=== PATIENT | male | born 1980 | race Caucasian/White ===

== ENCOUNTER 2018-07-04 14:35 | Inpatient (IN) | payer MEDICAID, OTHER ==
[~2018-07-04] VITALS: Ht 185.4 cm; Wt 102.3 kg
[2018-07-04 15:04] LABS: Basophils # (auto) 0.1 uL; Eosinophils # (auto) 0.2 uL; Eosinophils % (auto) 3.4 % (0.0-7.0); Hemoglobin 16.6 g/dL (13.5-17.5); Lymphocytes # (auto) 1.9 uL; Lymphocytes % (auto) 27.4 % (10.0-50.0); Mean Corpuscular Hgb Conc. 34.6 g/dL (32.0-36.0); Mean Corpuscular Volume 89.5 fL (80.0-100.0); Monocytes # (auto) 0.7 uL; Monocytes % (auto) 10.5 % (0.0-12.0); Neutrophils # (auto) 3.9 uL; Neutrophils % (auto) 57.7 % (37.0-80.0); Nucleated Red Blood Cells % 0.2 %; Platelet Count (auto) 317 10^3/uL (140-450); Red Blood Cells 5.36 10^6/uL (4.5-5.90); Red Cell Distribution Width 14.1 % (11.8-14.3); White Blood Cell 6.8 10^3/uL (4.4-10.8)
[2018-07-04 15:45] LABS: Alkaline Phosphatase 63 U/L (45-117); Anion Gap 12 (5-15); BUN/Creatinine Ratio 14.3; Blood Urea Nitrogen 11 mg/dL (7-18); Carbon Dioxide 22 mmol/L (21-32); Chloride 106 mmol/L (98-107); GFR African American 145 mL/min; GFR Non-African American 120 mL/min; Glucose 98 mg/dL (74-106); Potassium 4.4 mmol/L (3.5-5.1); Sodium 140 mmol/L (136-145)
[2018-07-04 15:46] LABS: Alanine Aminotransferase 60 U/L (16-61); Albumin 4.1 g/dL (3.4-5.0); Aspartate Aminotransferase 26 U/L (15-37); Calcium 9.2 mg/dL (8.5-10.1); Magnesium 2.3 mg/dL (1.6-2.6); Total Protein 7.6 g/dL (6.4-8.2)
[2018-07-04 19:49] LABS: Urine WBC None Seen /hpf (0 - 3)
[2018-07-04 20:58] LABS: Urine Amorphous Crystal MOD /hpf (None Seen); Urine Bacteria NONE SEEN /hpf (None Seen); Urine Blood Negative /uL (Negative); Urine Specific Gravity 1.015 (1.001-1.035)
[2018-07-04 21:05] LABS: Alcohol, Urine < 3.0 mg/dL (0-5); Amphetamine Screen, Urine NEGATIVE (NEGATIVE); Barbiturate Scree,Urine NEGATIVE (NEGATIVE); Benzodiazephine Screen, Urine NEGATIVE (NEGATIVE); Cannabinoid Screen, Urine NEGATIVE (NEGATIVE); Cocaine Screen, Urine NEGATIVE (NEGATIVE); Opiate Scree,Urine NEGATIVE (NEGATIVE); Phencyclidine Screen, Urine NEGATIVE (NEGATIVE)
[2018-07-04] MEDS ORDERED: ONDANSETRON HCL 4 MG/2 ML VIAL IV PRN (22:00)
[2018-07-04] MEDS ORDERED: TEMAZEPAM 15 MG CAP PO PRN (22:00)
[2018-07-04] MEDS ORDERED: MORPHINE SULF INJ 2 MG/ML SYRINGE 1ML IV PRN (22:00)
[2018-07-04] MEDS ORDERED: HYDROcodone-ACET 5/325MG TAB PO PRN (22:00)
[2018-07-04] MEDS: LORazepam 2MG/ML-1ML VIAL ONE ×4 (23:11→23:45)
[2018-07-04] MEDS ORDERED: LEVETIRACETAM 500 MG/5ML INJ IV ONE (23:16)
[2018-07-04] MEDS ORDERED: LEVETIRACETAM INJ 1,000 MG in D5W 5% 100 ML IV ONE (23:30)
[2018-07-04] MEDS ORDERED: LORazepam 2MG/ML-1ML VIAL IV PRN (23:30)
[2018-07-04] MEDS ORDERED: SUCCINYLCHOLINE CHLORIDE 20 MG/ML 10ML VIAL IV ONE (23:53)
[2018-07-04] MEDS ORDERED: ETOMIDATE (2MG/ML) 20ML VIAL IV ONE (23:53)
[2018-07-05] VITALS (104 sets, daily range): BP systolic 82–121; BP diastolic 47–85
[2018-07-05] MEDS ORDERED: METOPROLOL TARTRATE 1MG/1ML-5ML VIAL IV ONE
[2018-07-05] MEDS ORDERED: SODIUM CHLORIDE 0.9% 500 ML IV ONE
[2018-07-05] MEDS: PROPOFOL 100 ML IV SCH ×3 (00:04→19:48)
[2018-07-05] MEDS: MIDAZOLAM DRIP 50 mg/50mL 50 ML IV SCH ×6 (00:35→23:50)
[2018-07-05] MEDS ORDERED: MIDAZOLAM DRIP 50 mg/50mL 50 ML IV ONE (00:36)
[2018-07-05] MEDS: FAMOTIDINE 20 MG TAB PO SCH (10:00)
[2018-07-05] MEDS: PANTOPRAZOLE 40 MG/10 ML VIAL IV SCH (10:14)
[2018-07-05] MEDS: ENOXAPARIN SOD 40 MG/0.4 ML SYRINGE SC SCH (10:14)
[2018-07-05] MEDS: LEVETIRACETAM INJ 500 MG in D5W 5% 100 ML IV SCH ×2 (10:20→22:21)
[2018-07-05 11:19] LABS: Basophils # (auto) 0 uL; Basophils % (auto) 0.2 % (0.0-2.0); Eosinophils # (auto) 0 uL; Eosinophils % (auto) 0.3 % (0.0-7.0); Hematocrit 43.9 % (41.0-53.0); Hemoglobin 14.7 g/dL (13.5-17.5); Lymphocytes # (auto) 0.8 uL; Mean Corpuscular Hgb Conc. 33.5 g/dL (32.0-36.0); Mean Corpuscular Volume 89.5 fL (80.0-100.0); Monocytes % (auto) 7.8 % (0.0-12.0); Neutrophils # (auto) 11.1 uL; Neutrophils % (auto) 85.7 % (37.0-80.0); Nucleated Red Blood Cells % 0.1 %; Platelet Count (auto) 276 10^3/uL (140-450); Red Cell Distribution Width 14.5 % (11.8-14.3)
[2018-07-05 11:41] LABS: Calcium 8.3 mg/dL (8.5-10.1); Potassium 4.4 mmol/L (3.5-5.1)
[2018-07-06] VITALS (106 sets, daily range): BP systolic 94–127; BP diastolic 31–86
[2018-07-06] MEDS: MIDAZOLAM DRIP 50 mg/50mL 50 ML IV SCH ×5 (03:48→20:15)
[2018-07-06] MEDS: PROPOFOL 100 ML IV SCH ×2 (07:38→18:09)
[2018-07-06] MEDS: FAMOTIDINE 20 MG TAB PO SCH (10:00)
[2018-07-06] MEDS: PANTOPRAZOLE 40 MG/10 ML VIAL IV SCH (10:01)
[2018-07-06] MEDS: LEVETIRACETAM INJ 500 MG in D5W 5% 100 ML IV SCH ×2 (10:02→22:10)
[2018-07-06] MEDS: ENOXAPARIN SOD 40 MG/0.4 ML SYRINGE SC SCH (10:02)
[2018-07-06 11:11] LABS: Albumin 3.2 g/dL (3.4-5.0); BUN/Creatinine Ratio 15.1; Bilirubin, Total 2.6 mg/dL (0.2-1.0); Calcium 8.4 mg/dL (8.5-10.1); Potassium 4.3 mmol/L (3.5-5.1); Total Protein 6.9 g/dL (6.4-8.2)
[2018-07-06] MEDS ORDERED: ACETAMINOPHEN 650 MG RECT SUPP PR ONE (11:15)
[2018-07-06] MEDS: ACETAMINOPHEN 500 MG TAB PO PRN (22:27)
[2018-07-07] VITALS (92 sets, daily range): BP systolic 90–158; BP diastolic 38–104
[2018-07-07 03:58] LABS: Basophils # (auto) 0.1 uL; Basophils % (auto) 0.5 % (0.0-2.0); Eosinophils # (auto) 0.1 uL; Eosinophils % (auto) 0.4 % (0.0-7.0); Hematocrit 41.1 % (41.0-53.0); Hemoglobin 13.7 g/dL (13.5-17.5); Lymphocytes # (auto) 1.7 uL; Lymphocytes % (auto) 11.6 % (10.0-50.0); Mean Corpuscular Hemoglobin 30.1 pg (28.0-32.0); Mean Corpuscular Hgb Conc. 33.4 g/dL (32.0-36.0); Monocytes # (auto) 1.3 uL; Monocytes % (auto) 9.2 % (0.0-12.0); Neutrophils # (auto) 11.4 uL; Neutrophils % (auto) 78.3 % (37.0-80.0); Platelet Count (auto) 266 10^3/uL (140-450); Red Blood Cells 4.57 10^6/uL (4.5-5.90); Red Cell Distribution Width 14.4 % (11.8-14.3); White Blood Cell 14.6 10^3/uL (4.4-10.8)
[2018-07-07 04:14] LABS: BUN/Creatinine Ratio 20.5; Calcium 8.7 mg/dL (8.5-10.1); Potassium 4.3 mmol/L (3.5-5.1)
[2018-07-07] MEDS: PIPERACILLIN-TAZOB 3.375GM 100 ML IV SCH ×3 (05:49→18:00)
[2018-07-07] MEDS: MIDAZOLAM DRIP 50 mg/50mL 50 ML IV SCH ×5 (05:49→21:31)
[2018-07-07] MEDS: PROPOFOL 100 ML IV SCH ×2 (07:16→16:20)
[2018-07-07] MEDS: ACETAMINOPHEN 500 MG TAB PO PRN ×2 (08:47→22:42)
[2018-07-07] MEDS: LEVETIRACETAM INJ 500 MG in D5W 5% 100 ML IV SCH ×2 (09:31→21:32)
[2018-07-07] MEDS: PANTOPRAZOLE 40 MG/10 ML VIAL IV SCH (09:32)
[2018-07-07] MEDS: FAMOTIDINE 20 MG TAB PO SCH (09:32)
[2018-07-07] MEDS: ENOXAPARIN SOD 40 MG/0.4 ML SYRINGE SC SCH (09:33)
[2018-07-07] MEDS ORDERED: ACETAMINOPHEN IV 100 ML IV ONE (13:03)
[2018-07-07] MEDS ORDERED: ACETAMINOPHEN IV 1000 MG/100ML (10MG/ML) IV ONE (14:15)
[2018-07-08] VITALS (108 sets, daily range): BP systolic 84–144; BP diastolic 33–78
[2018-07-08] MEDS: PIPERACILLIN-TAZOB 3.375GM 100 ML IV SCH ×2 (00:08→05:03)
[2018-07-08] MEDS: PROPOFOL 100 ML IV SCH ×3 (00:45→18:31)
[2018-07-08] MEDS: MIDAZOLAM DRIP 50 mg/50mL 50 ML IV SCH ×6 (01:47→19:45)
[2018-07-08 03:56] LABS: Basophils # (auto) 0.1 uL; Basophils % (auto) 0.5 % (0.0-2.0); Eosinophils # (auto) 0.1 uL; Eosinophils % (auto) 1.2 % (0.0-7.0); Hematocrit 41.8 % (41.0-53.0); Hemoglobin 14.2 g/dL (13.5-17.5); Lymphocytes % (auto) 9.8 % (10.0-50.0); Mean Corpuscular Hemoglobin 30.4 pg (28.0-32.0); Mean Corpuscular Hgb Conc. 33.9 g/dL (32.0-36.0); Mean Corpuscular Volume 89.8 fL (80.0-100.0); Monocytes # (auto) 1.1 uL; Monocytes % (auto) 10.3 % (0.0-12.0); Neutrophils # (auto) 8.1 uL; Neutrophils % (auto) 78.2 % (37.0-80.0); Nucleated Red Blood Cells % 0.1 %; Platelet Count (auto) 261 10^3/uL (140-450); Red Blood Cells 4.66 10^6/uL (4.5-5.90); Red Cell Distribution Width 14.3 % (11.8-14.3); White Blood Cell 10.4 10^3/uL (4.4-10.8)
[2018-07-08 04:12] LABS: Potassium 3.8 mmol/L (3.5-5.1)
[2018-07-08 04:17] LABS: BUN/Creatinine Ratio 25.6; Calcium 8.6 mg/dL (8.5-10.1)
[2018-07-08] MEDS: FAMOTIDINE 20 MG TAB PO SCH (10:00)
[2018-07-08] MEDS: PANTOPRAZOLE 40 MG/10 ML VIAL IV SCH (10:04)
[2018-07-08] MEDS: LEVETIRACETAM INJ 500 MG in D5W 5% 100 ML IV SCH ×2 (10:04→22:48)
[2018-07-08] MEDS: ENOXAPARIN SOD 40 MG/0.4 ML SYRINGE SC SCH (10:04)
[2018-07-08] MEDS ORDERED: ACETAMINOPHEN IV 1000 MG/100ML (10MG/ML) IV PRN (12:30)
[2018-07-08 12:54] LABS: INR 1.08 (0.9-1.15); Prothrombin Time 11.5 sec (9.27-12.13)
[2018-07-08] MEDS: ACETAMINOPHEN IV 1000 MG/100ML (10MG/ML) IV PRN ×2 (13:16→21:40)
[2018-07-08] MEDS: CLINDAMYCIN 600MG IV 50 ML IV SCH ×2 (13:42→21:19)
[2018-07-08] MEDS ORDERED: LIDOCAINE 1% (LOCAL ANESTH.) PF 5ml SDV ID ONE (15:45)
[2018-07-08] MEDS: Jevity 1.2 Cal/Fiber 1 Liter GT SCH (18:30)
[2018-07-08] MEDS: SODIUM CHLOR 0.9% PF (SALINE LOCK) 10ML VIAL/SYR IV SCH (22:00)
[2018-07-09] VITALS (101 sets, daily range): BP systolic 80–153; BP diastolic 36–88
[2018-07-09] MEDS: MIDAZOLAM DRIP 50 mg/50mL 50 ML IV SCH ×4 (00:43→21:21)
[2018-07-09] MEDS: PROPOFOL 100 ML IV SCH ×2 (03:27→15:26)
[2018-07-09 03:52] LABS: Basophils # (auto) 0.1 uL; Basophils % (auto) 0.8 % (0.0-2.0); Eosinophils # (auto) 0.2 uL; Eosinophils % (auto) 1.7 % (0.0-7.0); Hematocrit 39.5 % (41.0-53.0); Hemoglobin 13.2 g/dL (13.5-17.5); Lymphocytes # (auto) 1.1 uL; Lymphocytes % (auto) 11.2 % (10.0-50.0); Mean Corpuscular Hemoglobin 30.1 pg (28.0-32.0); Mean Corpuscular Hgb Conc. 33.4 g/dL (32.0-36.0); Mean Corpuscular Volume 90.1 fL (80.0-100.0); Monocytes # (auto) 1.1 uL; Monocytes % (auto) 10.9 % (0.0-12.0); Neutrophils # (auto) 7.4 uL; Neutrophils % (auto) 75.4 % (37.0-80.0); Platelet Count (auto) 274 10^3/uL (140-450); Red Blood Cells 4.39 10^6/uL (4.5-5.90); Red Cell Distribution Width 13.7 % (11.8-14.3); White Blood Cell 9.8 10^3/uL (4.4-10.8)
[2018-07-09 04:18] LABS: Calcium 8.5 mg/dL (8.5-10.1); Potassium 3.9 mmol/L (3.5-5.1)
[2018-07-09] MEDS: CLINDAMYCIN 600MG IV 50 ML IV SCH ×3 (05:54→21:23)
[2018-07-09] MEDS: ACETAMINOPHEN IV 1000 MG/100ML (10MG/ML) IV PRN ×3 (06:14→23:09)
[2018-07-09 07:43] LABS: BUN/Creatinine Ratio 26.5
[2018-07-09] MEDS: LEVETIRACETAM INJ 500 MG in D5W 5% 100 ML IV SCH ×2 (10:20→22:19)
[2018-07-09] MEDS: FAMOTIDINE 20 MG TAB PO SCH (10:24)
[2018-07-09] MEDS: CEFTRIAXONE SODIUM 2 GM in D5W 5% 50 ML IV SCH (10:24)
[2018-07-09] MEDS: SODIUM CHLOR 0.9% PF (SALINE LOCK) 10ML VIAL/SYR IV SCH ×2 (10:24→21:23)
[2018-07-09] MEDS: ENOXAPARIN SOD 40 MG/0.4 ML SYRINGE SC SCH (10:24)
[2018-07-09] MEDS: PANTOPRAZOLE 40 MG/10 ML VIAL IV SCH (10:24)
[2018-07-10] VITALS (103 sets, daily range): BP systolic 82–178; BP diastolic 39–95
[2018-07-10] MEDS: PROPOFOL 100 ML IV SCH ×2 (02:00→16:59)
[2018-07-10 04:39] LABS: Basophils # (auto) 0.1 uL; Basophils % (auto) 1.1 % (0.0-2.0); Eosinophils # (auto) 0.2 uL; Eosinophils % (auto) 1.9 % (0.0-7.0); Hematocrit 37.3 % (41.0-53.0); Lymphocytes % (auto) 10.6 % (10.0-50.0); Mean Corpuscular Hemoglobin 31.1 pg (28.0-32.0); Mean Corpuscular Hgb Conc. 34.8 g/dL (32.0-36.0); Mean Corpuscular Volume 89.2 fL (80.0-100.0); Monocytes # (auto) 1.1 uL; Monocytes % (auto) 11.6 % (0.0-12.0); Neutrophils # (auto) 7.1 uL; Neutrophils % (auto) 74.8 % (37.0-80.0); Platelet Count (auto) 273 10^3/uL (140-450); Red Blood Cells 4.18 10^6/uL (4.5-5.90); Red Cell Distribution Width 13.9 % (11.8-14.3); White Blood Cell 9.5 10^3/uL (4.4-10.8)
[2018-07-10] MEDS: Jevity 1.2 Cal/Fiber 1 Liter GT SCH (04:44)
[2018-07-10 05:02] LABS: BUN/Creatinine Ratio 24.6; Calcium 8.3 mg/dL (8.5-10.1); Magnesium 2.4 mg/dL (1.6-2.6); Phosphorus 2.9 mg/dL (2.5-4.90); Potassium 3.8 mmol/L (3.5-5.1)
[2018-07-10] MEDS: ACETAMINOPHEN IV 1000 MG/100ML (10MG/ML) IV PRN ×2 (05:17→17:45)
[2018-07-10] MEDS: CLINDAMYCIN 600MG IV 50 ML IV SCH (05:52)
[2018-07-10] MEDS: MIDAZOLAM DRIP 50 mg/50mL 50 ML IV SCH ×2 (05:59→15:29)
[2018-07-10] MEDS: CEFTRIAXONE SODIUM 2 GM in D5W 5% 50 ML IV SCH (08:56)
[2018-07-10] MEDS: FAMOTIDINE 20 MG TAB PO SCH (09:36)
[2018-07-10] MEDS: PANTOPRAZOLE 40 MG/10 ML VIAL IV SCH (09:36)
[2018-07-10] MEDS: ENOXAPARIN SOD 40 MG/0.4 ML SYRINGE SC SCH (09:36)
[2018-07-10] MEDS: SODIUM CHLOR 0.9% PF (SALINE LOCK) 10ML VIAL/SYR IV SCH ×2 (09:36→22:27)
[2018-07-10] MEDS: LEVETIRACETAM INJ 500 MG in D5W 5% 100 ML IV SCH (09:37)
[2018-07-10] MEDS ORDERED: PIPERACILLIN-TAZOB 3.375GM 100 ML IV ONE (14:15)
[2018-07-10] MEDS ORDERED: IOHEXOL 300 MG/ML 100ML BOTTLE IJ ONE (15:32)
[2018-07-10] MEDS ORDERED: LEVETIRACETAM INJ 500 MG in D5W 5% 100 ML IV ONE (17:00)
[2018-07-10] MEDS ORDERED: LEVETIRACETAM INJ 1,000 MG in D5W 5% 100 ML IV ONE (17:00)
[2018-07-10] MEDS ORDERED: ceFAZolin 1GM/50ML 50 ML IV SCH (18:00)
[2018-07-10] MEDS: PIPERACILLIN-TAZOB 3.375GM 100 ML IV SCH ×2 (18:02→23:33)
[2018-07-10] MEDS: LEVETIRACETAM INJ 750 MG in D5W 5% 100 ML IV SCH (21:25)
[2018-07-10] MEDS ORDERED: LEVETIRACETAM INJ 750 MG in D5W 5% 100 ML IV SCH (22:00)
[2018-07-11] VITALS (97 sets, daily range): BP systolic 93–141; BP diastolic 46–88
[2018-07-11] MEDS: ACETAMINOPHEN IV 1000 MG/100ML (10MG/ML) IV PRN (01:02)
[2018-07-11] MEDS: MIDAZOLAM DRIP 50 mg/50mL 50 ML IV SCH ×3 (01:55→17:53)
[2018-07-11 04:27] LABS: Basophils # (auto) 0 uL; Basophils % (auto) 0.5 % (0.0-2.0); Eosinophils # (auto) 0.2 uL; Eosinophils % (auto) 2.4 % (0.0-7.0); Hemoglobin 13.1 g/dL (13.5-17.5); Lymphocytes # (auto) 1.2 uL; Lymphocytes % (auto) 13.7 % (10.0-50.0); Mean Corpuscular Hemoglobin 29.7 pg (28.0-32.0); Mean Corpuscular Hgb Conc. 33.5 g/dL (32.0-36.0); Mean Corpuscular Volume 88.8 fL (80.0-100.0); Monocytes % (auto) 10.9 % (0.0-12.0); Neutrophils # (auto) 6.4 uL; Neutrophils % (auto) 72.5 % (37.0-80.0); Nucleated Red Blood Cells % 0.1 %; Platelet Count (auto) 310 10^3/uL (140-450); Red Blood Cells 4.39 10^6/uL (4.5-5.90); Red Cell Distribution Width 13.8 % (11.8-14.3); White Blood Cell 8.8 10^3/uL (4.4-10.8)
[2018-07-11 04:53] LABS: BUN/Creatinine Ratio 26.3; Calcium 8.5 mg/dL (8.5-10.1); Potassium 3.4 mmol/L (3.5-5.1)
[2018-07-11] MEDS: PROPOFOL 100 ML IV SCH ×2 (06:24→17:42)
[2018-07-11] MEDS: PIPERACILLIN-TAZOB 3.375GM 100 ML IV SCH ×3 (06:24→17:41)
[2018-07-11] MEDS: Jevity 1.2 Cal/Fiber 1 Liter GT SCH (06:25)
[2018-07-11] MEDS: ENOXAPARIN SOD 40 MG/0.4 ML SYRINGE SC SCH (09:56)
[2018-07-11] MEDS: PANTOPRAZOLE 40 MG/10 ML VIAL IV SCH (09:56)
[2018-07-11] MEDS: FAMOTIDINE 20 MG TAB PO SCH (09:56)
[2018-07-11] MEDS: SODIUM CHLOR 0.9% PF (SALINE LOCK) 10ML VIAL/SYR IV SCH ×2 (09:56→22:00)
[2018-07-11] MEDS: LEVETIRACETAM INJ 750 MG in D5W 5% 100 ML IV SCH ×2 (10:32→22:00)
[2018-07-11] MEDS ORDERED: POTASSIUM CHL 20MEQ/100ML 100 ML IV ONE (12:45)
[2018-07-12] VITALS (66 sets, daily range): BP systolic 99–166; BP diastolic 55–113
[2018-07-12] MEDS: PIPERACILLIN-TAZOB 3.375GM 100 ML IV SCH ×3 (00:23→11:37)
[2018-07-12] MEDS: MIDAZOLAM DRIP 50 mg/50mL 50 ML IV SCH ×2 (03:45→06:54)
[2018-07-12] MEDS: ACETAMINOPHEN IV 1000 MG/100ML (10MG/ML) IV PRN (03:45)
[2018-07-12] MEDS: PROPOFOL 100 ML IV SCH ×2 (03:45→06:53)
[2018-07-12 04:40] LABS: Basophils # (auto) 0 uL; Basophils % (auto) 0.4 % (0.0-2.0); Eosinophils # (auto) 0.2 uL; Eosinophils % (auto) 2.3 % (0.0-7.0); Hemoglobin 12.4 g/dL (13.5-17.5); Lymphocytes # (auto) 1.2 uL; Lymphocytes % (auto) 12.2 % (10.0-50.0); Mean Corpuscular Hemoglobin 29.7 pg (28.0-32.0); Mean Corpuscular Hgb Conc. 33.5 g/dL (32.0-36.0); Mean Corpuscular Volume 88.7 fL (80.0-100.0); Monocytes % (auto) 10.1 % (0.0-12.0); Neutrophils # (auto) 7.6 uL; Platelet Count (auto) 356 10^3/uL (140-450); Red Blood Cells 4.17 10^6/uL (4.5-5.90); Red Cell Distribution Width 13.6 % (11.8-14.3); White Blood Cell 10.2 10^3/uL (4.4-10.8)
[2018-07-12 05:02] LABS: Calcium 8.3 mg/dL (8.5-10.1); Potassium 3.3 mmol/L (3.5-5.1)
[2018-07-12] MEDS: PANTOPRAZOLE 40 MG/10 ML VIAL IV SCH (09:57)
[2018-07-12] MEDS: SODIUM CHLOR 0.9% PF (SALINE LOCK) 10ML VIAL/SYR IV SCH ×2 (09:57→21:29)
[2018-07-12] MEDS: ENOXAPARIN SOD 40 MG/0.4 ML SYRINGE SC SCH (09:57)
[2018-07-12] MEDS: FAMOTIDINE 20 MG TAB PO SCH (10:00)
[2018-07-12] MEDS: LEVETIRACETAM INJ 750 MG in D5W 5% 100 ML IV SCH (10:35)
[2018-07-12] MEDS ORDERED: POTASSIUM CHL 20MEQ/100ML 100 ML IV ONE (13:15)
[2018-07-12] MEDS ORDERED: LEVOFLOXACIN 500MG 100 ML IV ONE (14:00)
[2018-07-12] MEDS: LEVOFLOXACIN 750MG 150 ML IV SCH (16:10)
[2018-07-12] MEDS: LEVETIRACETAM 500 MG TAB PO SCH (21:29)
[2018-07-13] VITALS (20 sets, daily range): BP systolic 92–159; BP diastolic 43–101
[2018-07-13] MEDS ORDERED: LORazepam 2MG/ML-1ML VIAL ONE (02:10)
[2018-07-13] MEDS ORDERED: LORazepam 2MG/ML-1ML VIAL IV PRN (08:15)
[2018-07-13] MEDS: LEVETIRACETAM 500 MG TAB PO SCH ×2 (10:17→21:55)
[2018-07-13] MEDS: LEVOFLOXACIN 750MG 150 ML IV SCH (10:17)
[2018-07-13] MEDS: FAMOTIDINE 20 MG TAB PO SCH (10:17)
[2018-07-13] MEDS: ENOXAPARIN SOD 40 MG/0.4 ML SYRINGE SC SCH (10:17)
[2018-07-13] MEDS: SODIUM CHLOR 0.9% PF (SALINE LOCK) 10ML VIAL/SYR IV SCH ×2 (10:17→21:55)
[2018-07-13 11:06] LABS: Basophils # (auto) 0.1 uL; Basophils % (auto) 0.5 % (0.0-2.0); Eosinophils # (auto) 0.1 uL; Eosinophils % (auto) 1.1 % (0.0-7.0); Hematocrit 35.8 % (41.0-53.0); Hemoglobin 12.4 g/dL (13.5-17.5); Lymphocytes % (auto) 9.5 % (10.0-50.0); Mean Corpuscular Hemoglobin 30.6 pg (28.0-32.0); Mean Corpuscular Hgb Conc. 34.7 g/dL (32.0-36.0); Mean Corpuscular Volume 88.1 fL (80.0-100.0); Monocytes # (auto) 0.9 uL; Monocytes % (auto) 8.4 % (0.0-12.0); Neutrophils # (auto) 8.3 uL; Neutrophils % (auto) 80.5 % (37.0-80.0); Nucleated Red Blood Cells % 0.1 %; Platelet Count (auto) 308 10^3/uL (140-450); Red Blood Cells 4.06 10^6/uL (4.5-5.90); Red Cell Distribution Width 13.1 % (11.8-14.3); White Blood Cell 10.3 10^3/uL (4.4-10.8)
[2018-07-13 11:32] LABS: Calcium 8.3 mg/dL (8.5-10.1); Potassium 3.5 mmol/L (3.5-5.1)
[2018-07-13] MEDS ORDERED: TEMAZEPAM 15 MG CAP PO PRN (12:45)
[2018-07-14] VITALS (16 sets, daily range): BP systolic 118–155; BP diastolic 71–94
[2018-07-14 08:59] LABS: Basophils # (auto) 0 uL; Basophils % (auto) 0.2 % (0.0-2.0); Eosinophils # (auto) 0.1 uL; Hematocrit 38.5 % (41.0-53.0); Hemoglobin 13.5 g/dL (13.5-17.5); Lymphocytes # (auto) 0.9 uL; Lymphocytes % (auto) 6.8 % (10.0-50.0); Mean Corpuscular Hemoglobin 30.5 pg (28.0-32.0); Mean Corpuscular Hgb Conc. 35.1 g/dL (32.0-36.0); Mean Corpuscular Volume 86.8 fL (80.0-100.0); Monocytes # (auto) 0.9 uL; Monocytes % (auto) 6.9 % (0.0-12.0); Neutrophils # (auto) 11.4 uL; Neutrophils % (auto) 85.1 % (37.0-80.0); Nucleated Red Blood Cells % 0.2 %; Platelet Count (auto) 450 10^3/uL (140-450); Red Blood Cells 4.44 10^6/uL (4.5-5.90); Red Cell Distribution Width 13.2 % (11.8-14.3); White Blood Cell 13.4 10^3/uL (4.4-10.8)
[2018-07-14 09:14] LABS: BUN/Creatinine Ratio 20.8; Calcium 8.8 mg/dL (8.5-10.1); Potassium 3.5 mmol/L (3.5-5.1)
[2018-07-14] MEDS ORDERED: ONDANSETRON HCL 4 MG/2 ML VIAL ONE (09:26)
[2018-07-14] MEDS: LEVOFLOXACIN 750MG 150 ML IV SCH (09:29)
[2018-07-14] MEDS: ONDANSETRON HCL 4 MG/2 ML VIAL IV PRN ×2 (09:29→20:37)
[2018-07-14] MEDS: SODIUM CHLOR 0.9% PF (SALINE LOCK) 10ML VIAL/SYR IV SCH ×2 (09:29→21:13)
[2018-07-14] MEDS: ENOXAPARIN SOD 40 MG/0.4 ML SYRINGE SC SCH (09:30)
[2018-07-14] MEDS: LEVETIRACETAM 500 MG TAB PO SCH ×2 (09:30→21:14)
[2018-07-14] MEDS: FAMOTIDINE 20 MG TAB PO SCH (09:30)
[2018-07-14] MEDS ORDERED: PANTOPRAZOLE 40 MG TAB PO ONE (13:15)
[2018-07-14] MEDS ORDERED: ACETAMINOPHEN 500 MG TAB PO PRN (13:15)
[2018-07-14] MEDS ORDERED: LIDOCAINE 1% (LOCAL ANESTH.) PF 5ml SDV ONE (14:21)
[2018-07-15 05:00] VITALS: BP 123/73
[2018-07-15] MEDS: ONDANSETRON HCL 4 MG/2 ML VIAL IV PRN (05:40)
[2018-07-15 06:37] LABS: Basophils # (auto) 0 uL; Mean Corpuscular Hemoglobin 30.7 pg (28.0-32.0); Monocytes # (auto) 1.1 uL; Neutrophils # (auto) 10.1 uL; Red Blood Cells 4.57 10^6/uL (4.5-5.90)
[2018-07-15 06:39] LABS: Basophils % (auto) 0.3 % (0.0-2.0); Eosinophils # (auto) 0.2 uL; Eosinophils % (auto) 1.7 % (0.0-7.0); Hematocrit 39.4 % (41.0-53.0); Lymphocytes # (auto) 1.1 uL; Lymphocytes % (auto) 8.8 % (10.0-50.0); Mean Corpuscular Hgb Conc. 35.5 g/dL (32.0-36.0); Mean Corpuscular Volume 86.4 fL (80.0-100.0); Monocytes % (auto) 8.5 % (0.0-12.0); Neutrophils % (auto) 80.7 % (37.0-80.0); Platelet Count (auto) 468 10^3/uL (140-450); Red Cell Distribution Width 13.3 % (11.8-14.3); White Blood Cell 12.6 10^3/uL (4.4-10.8)
[2018-07-15 09:00] VITALS: BP 149/83
[2018-07-15] MEDS: LEVOFLOXACIN 750MG 150 ML IV SCH (09:59)
[2018-07-15] MEDS: ENOXAPARIN SOD 40 MG/0.4 ML SYRINGE SC SCH (09:59)
[2018-07-15] MEDS: LEVETIRACETAM 500 MG TAB PO SCH ×2 (09:59→22:22)
[2018-07-15] MEDS: PANTOPRAZOLE 40 MG TAB PO SCH (09:59)
[2018-07-15] MEDS: SODIUM CHLOR 0.9% PF (SALINE LOCK) 10ML VIAL/SYR IV SCH ×2 (10:01→22:22)
[2018-07-15 10:28] LABS: Potassium 3.5 mmol/L (3.5-5.1)
[2018-07-15 10:29] LABS: Albumin 2.6 g/dL (3.4-5.0); BUN/Creatinine Ratio 19.4; Bilirubin, Total 0.6 mg/dL (0.2-1.0); Calcium 8.6 mg/dL (8.5-10.1); Total Protein 7.5 g/dL (6.4-8.2)
[2018-07-15] MEDS: PROMETHAZINE HCL 25 MG/ML 1ML IV PRN ×2 (15:55→22:23)
[2018-07-15] MEDS: SUCRALFATE 1 GM TAB PO SCH ×2 (15:55→22:22)
[2018-07-15 17:00] VITALS: BP 145/87
[2018-07-15 22:00] VITALS: BP 167/105
[2018-07-15] MEDS ORDERED: traMADol HCL 50 MG TAB PO ONE (23:00)
[2018-07-16] MEDS: PROMETHAZINE HCL 25 MG/ML 1ML IV PRN ×3 (04:31→21:24)
[2018-07-16 06:00] VITALS: BP 152/107
[2018-07-16] MEDS: SUCRALFATE 1 GM TAB PO SCH ×4 (06:44→21:24)
[2018-07-16 07:27] LABS: Basophils # (auto) 0 uL; Basophils % (auto) 0.3 % (0.0-2.0); Hemoglobin 14.8 g/dL (13.5-17.5); Monocytes # (auto) 1.1 uL
[2018-07-16 07:31] LABS: Eosinophils # (auto) 0.1 uL; Eosinophils % (auto) 1.1 % (0.0-7.0); Hematocrit 42.8 % (41.0-53.0); Lymphocytes # (auto) 1.3 uL; Lymphocytes % (auto) 10.5 % (10.0-50.0); Mean Corpuscular Hemoglobin 29.8 pg (28.0-32.0); Mean Corpuscular Hgb Conc. 34.6 g/dL (32.0-36.0); Mean Corpuscular Volume 86.2 fL (80.0-100.0); Monocytes % (auto) 8.5 % (0.0-12.0); Neutrophils # (auto) 10.2 uL; Neutrophils % (auto) 79.6 % (37.0-80.0); Nucleated Red Blood Cells % 0.1 %; Platelet Count (auto) 533 10^3/uL (140-450); Red Blood Cells 4.96 10^6/uL (4.5-5.90); Red Cell Distribution Width 13.1 % (11.8-14.3); White Blood Cell 12.8 10^3/uL (4.4-10.8)
[2018-07-16 09:00] VITALS: BP 142/92
[2018-07-16] MEDS: LEVETIRACETAM 500 MG TAB PO SCH (10:02)
[2018-07-16] MEDS: PANTOPRAZOLE 40 MG TAB PO SCH (10:02)
[2018-07-16] MEDS: SODIUM CHLOR 0.9% PF (SALINE LOCK) 10ML VIAL/SYR IV SCH ×2 (10:03→20:58)
[2018-07-16] MEDS: LEVOFLOXACIN 750MG 150 ML IV SCH (10:03)
[2018-07-16] MEDS: ENOXAPARIN SOD 40 MG/0.4 ML SYRINGE SC SCH (10:05)
[2018-07-16] MEDS ORDERED: TAMSULOSIN HYDROCHLORIDE 0.4 MG CAP PO ONE (11:00)
[2018-07-16] MEDS ORDERED: IOHEXOL 300 MG/ML 100ML BOTTLE IJ ONE (11:08)
[2018-07-16 13:00] VITALS: BP 160/98
[2018-07-16] MEDS ORDERED: LISINOPRIL 10 MG TAB PO ONE (14:15)
[2018-07-16 17:00] VITALS: BP 115/64
[2018-07-16] MEDS: TAMSULOSIN HYDROCHLORIDE 0.4 MG CAP PO SCH (20:01)
[2018-07-16 21:50] VITALS: BP 120/55
[2018-07-17 05:02] VITALS: BP 147/87
[2018-07-17 06:44] LABS: Basophils # (auto) 0 uL; Basophils % (auto) 0.2 % (0.0-2.0); Eosinophils # (auto) 0.1 uL
[2018-07-17 06:47] LABS: Eosinophils % (auto) 0.6 % (0.0-7.0); Lymphocytes % (auto) 7.9 % (10.0-50.0); Mean Corpuscular Hemoglobin 30.4 pg (28.0-32.0); Mean Corpuscular Hgb Conc. 34.9 g/dL (32.0-36.0); Mean Corpuscular Volume 87.2 fL (80.0-100.0); Monocytes # (auto) 0.8 uL; Monocytes % (auto) 6.4 % (0.0-12.0); Neutrophils # (auto) 10.9 uL; Neutrophils % (auto) 84.9 % (37.0-80.0); Platelet Count (auto) 549 10^3/uL (140-450); Red Blood Cells 4.94 10^6/uL (4.5-5.90); Red Cell Distribution Width 13.3 % (11.8-14.3); White Blood Cell 12.8 10^3/uL (4.4-10.8)
[2018-07-17] MEDS: PROMETHAZINE HCL 25 MG/ML 1ML IV PRN ×2 (06:51→16:06)
[2018-07-17] MEDS: SUCRALFATE 1 GM TAB PO SCH ×5 (06:51→22:26)
[2018-07-17 07:02] LABS: BUN/Creatinine Ratio 14.3; Calcium 8.8 mg/dL (8.5-10.1); Potassium 3.8 mmol/L (3.5-5.1)
[2018-07-17 08:00] VITALS: BP 140/112
[2018-07-17 09:00] VITALS: BP 140/112
[2018-07-17] MEDS: PANTOPRAZOLE 40 MG TAB PO SCH (09:59)
[2018-07-17] MEDS: LISINOPRIL 10 MG TAB PO SCH (10:00)
[2018-07-17] MEDS: SODIUM CHLOR 0.9% PF (SALINE LOCK) 10ML VIAL/SYR IV SCH ×2 (10:09→22:26)
[2018-07-17] MEDS: LEVOFLOXACIN 750MG 150 ML IV SCH (10:09)
[2018-07-17] MEDS ORDERED: LIDOCAINE 2% (LOCAL ANESTH.) PF 5ml SDV ONE (10:19)
[2018-07-17] MEDS ORDERED: fentaNYL CITRATE 100 MCG/2 ML VL ONE (10:53)
[2018-07-17 13:00] VITALS: BP 119/80
[2018-07-17 17:00] VITALS: BP 114/70
[2018-07-17] MEDS: TAMSULOSIN HYDROCHLORIDE 0.4 MG CAP PO SCH (17:54)
[2018-07-17 22:00] VITALS: BP 148/93
[2018-07-18] VITALS (7 sets, daily range): BP systolic 82–145; BP diastolic 60–112
[2018-07-18] MEDS: PROMETHAZINE HCL 25 MG/ML 1ML IV PRN (05:08)
[2018-07-18 05:36] LABS: Eosinophils # (auto) 0.2 uL; Monocytes # (auto) 0.9 uL; Neutrophils # (auto) 8.6 uL
[2018-07-18 05:38] LABS: Basophils # (auto) 0.1 uL; Basophils % (auto) 0.5 % (0.0-2.0); Eosinophils % (auto) 1.8 % (0.0-7.0); Hematocrit 45.2 % (41.0-53.0); Hemoglobin 15.8 g/dL (13.5-17.5); Lymphocytes # (auto) 1.4 uL; Lymphocytes % (auto) 12.2 % (10.0-50.0); Mean Corpuscular Hemoglobin 30.5 pg (28.0-32.0); Mean Corpuscular Hgb Conc. 34.9 g/dL (32.0-36.0); Mean Corpuscular Volume 87.3 fL (80.0-100.0); Monocytes % (auto) 8.2 % (0.0-12.0); Neutrophils % (auto) 77.3 % (37.0-80.0); Nucleated Red Blood Cells % 0.1 %; Platelet Count (auto) 603 10^3/uL (140-450); Red Blood Cells 5.17 10^6/uL (4.5-5.90); Red Cell Distribution Width 13.2 % (11.8-14.3); White Blood Cell 11.2 10^3/uL (4.4-10.8)
[2018-07-18] MEDS: SUCRALFATE 1 GM TAB PO SCH ×4 (06:58→22:09)
[2018-07-18] MEDS: LISINOPRIL 10 MG TAB PO SCH (09:03)
[2018-07-18] MEDS: PANTOPRAZOLE 40 MG TAB PO SCH (09:03)
[2018-07-18] MEDS: LEVOFLOXACIN 750MG 150 ML IV SCH (09:05)
[2018-07-18] MEDS: SODIUM CHLOR 0.9% PF (SALINE LOCK) 10ML VIAL/SYR IV SCH ×2 (09:08→22:09)
[2018-07-18] MEDS: HYDROcodone-ACET 5/325MG TAB PO PRN (15:35)
[2018-07-18] MEDS: TAMSULOSIN HYDROCHLORIDE 0.4 MG CAP PO SCH (17:38)
[2018-07-19] VITALS (7 sets, daily range): BP systolic 92–119; BP diastolic 42–76
[2018-07-19] MEDS: SUCRALFATE 1 GM TAB PO SCH ×4 (06:59→21:42)
[2018-07-19] MEDS: PANTOPRAZOLE 40 MG TAB PO SCH (09:05)
[2018-07-19] MEDS: LEVOFLOXACIN 750MG 150 ML IV SCH (09:05)
[2018-07-19] MEDS: LISINOPRIL 10 MG TAB PO SCH (09:06)
[2018-07-19] MEDS: SODIUM CHLOR 0.9% PF (SALINE LOCK) 10ML VIAL/SYR IV SCH ×2 (12:14→21:42)
[2018-07-19] MEDS: TAMSULOSIN HYDROCHLORIDE 0.4 MG CAP PO SCH (17:33)
[2018-07-19] MEDS: HYDROcodone-ACET 5/325MG TAB PO PRN (21:42)
[2018-07-20 05:42] VITALS: BP 117/53
[2018-07-20] MEDS: SUCRALFATE 1 GM TAB PO SCH ×4 (06:17→21:46)
[2018-07-20 07:26] LABS: BUN/Creatinine Ratio 8.6; Calcium 8.6 mg/dL (8.5-10.1); Potassium 3.6 mmol/L (3.5-5.1)
[2018-07-20 08:00] VITALS: BP 136/79
[2018-07-20] MEDS: LEVOFLOXACIN 750MG 150 ML IV SCH (08:56)
[2018-07-20] MEDS: PANTOPRAZOLE 40 MG TAB PO SCH (08:56)
[2018-07-20 09:08] LABS: Basophils # (auto) 0.1 uL; Eosinophils # (auto) 0.3 uL; Eosinophils % (auto) 3.5 % (0.0-7.0); Hemoglobin 14.5 g/dL (13.5-17.5); Lymphocytes # (auto) 1.6 uL
[2018-07-20 09:10] LABS: Basophils % (auto) 0.7 % (0.0-2.0); Hematocrit 42.8 % (41.0-53.0); Lymphocytes % (auto) 17.9 % (10.0-50.0); Mean Corpuscular Hemoglobin 29.7 pg (28.0-32.0); Mean Corpuscular Hgb Conc. 33.8 g/dL (32.0-36.0); Mean Corpuscular Volume 87.9 fL (80.0-100.0); Monocytes # (auto) 0.9 uL; Monocytes % (auto) 10.2 % (0.0-12.0); Neutrophils # (auto) 6.2 uL; Neutrophils % (auto) 67.7 % (37.0-80.0); Nucleated Red Blood Cells % 0.1 %; Platelet Count (auto) 573 10^3/uL (140-450); Red Blood Cells 4.87 10^6/uL (4.5-5.90); Red Cell Distribution Width 13.4 % (11.8-14.3); White Blood Cell 9.1 10^3/uL (4.4-10.8)
[2018-07-20 10:06] VITALS: BP 93/61
[2018-07-20] MEDS: SODIUM CHLOR 0.9% PF (SALINE LOCK) 10ML VIAL/SYR IV SCH ×2 (11:03→21:46)
[2018-07-20 13:00] VITALS: BP 113/57
[2018-07-20 16:00] VITALS: BP 91/61
[2018-07-20] MEDS: TAMSULOSIN HYDROCHLORIDE 0.4 MG CAP PO SCH (17:22)
[2018-07-20 21:32] VITALS: BP 100/67
[2018-07-20] MEDS: HYDROcodone-ACET 5/325MG TAB PO PRN (21:47)
[2018-07-21 05:11] VITALS: BP 144/70
[2018-07-21] MEDS: SUCRALFATE 1 GM TAB PO SCH ×4 (06:28→21:23)
[2018-07-21 06:50] LABS: Basophils # (auto) 0.1 uL; Eosinophils # (auto) 0.3 uL; Hemoglobin 13.8 g/dL (13.5-17.5); Lymphocytes # (auto) 1.6 uL
[2018-07-21 06:52] LABS: Hematocrit 39.4 % (41.0-53.0); Lymphocytes % (auto) 19.2 % (10.0-50.0); Mean Corpuscular Hemoglobin 30.6 pg (28.0-32.0); Mean Corpuscular Volume 87.6 fL (80.0-100.0); Monocytes # (auto) 0.8 uL; Monocytes % (auto) 10.1 % (0.0-12.0); Neutrophils # (auto) 5.6 uL; Neutrophils % (auto) 66.7 % (37.0-80.0); Platelet Count (auto) 449 10^3/uL (140-450); Red Cell Distribution Width 13.3 % (11.8-14.3); White Blood Cell 8.4 10^3/uL (4.4-10.8)
[2018-07-21 07:12] LABS: BUN/Creatinine Ratio 7.7; Calcium 8.6 mg/dL (8.5-10.1); Potassium 3.9 mmol/L (3.5-5.1)
[2018-07-21] MEDS ORDERED: TEMAZEPAM 15 MG CAP PO PRN (08:00)
[2018-07-21 08:44] VITALS: BP 103/63
[2018-07-21] MEDS: LEVOFLOXACIN 750MG 150 ML IV SCH (10:17)
[2018-07-21] MEDS: SODIUM CHLOR 0.9% PF (SALINE LOCK) 10ML VIAL/SYR IV SCH ×2 (10:17→21:23)
[2018-07-21] MEDS: PANTOPRAZOLE 40 MG TAB PO SCH (10:17)
[2018-07-21 13:00] VITALS: BP 120/70
[2018-07-21 17:17] VITALS: BP 117/78
[2018-07-21] MEDS: TAMSULOSIN HYDROCHLORIDE 0.4 MG CAP PO SCH (17:24)
[2018-07-21 22:00] VITALS: BP 103/68
[2018-07-22] MEDS: HYDROcodone-ACET 5/325MG TAB PO PRN (03:42)
[2018-07-22 05:00] VITALS: BP 108/72
[2018-07-22] MEDS: SUCRALFATE 1 GM TAB PO SCH ×4 (05:55→22:00)
[2018-07-22] MEDS ORDERED: LORazepam 2MG/ML-1ML VIAL ONE (06:18)
[2018-07-22] MEDS ORDERED: LORazepam 2MG/ML-1ML VIAL IV PRN ×2 (06:30→07:00)
[2018-07-22] MEDS ORDERED: LORazepam 2MG/ML-1ML VIAL IV ONE (06:30)
[2018-07-22] MEDS ORDERED: LEVETIRACETAM INJ 1,000 MG in D5W 5% 100 ML IV ONE (06:30)
[2018-07-22 08:00] VITALS: BP 99/61
[2018-07-22 09:00] VITALS: BP 99/61
[2018-07-22 09:19] LABS: Eosinophils # (auto) 0.2 uL; Mean Corpuscular Volume 87.4 fL (80.0-100.0)
[2018-07-22 09:21] LABS: Hematocrit 40.7 % (41.0-53.0); Mean Corpuscular Hemoglobin 30.1 pg (28.0-32.0); Mean Corpuscular Hgb Conc. 34.4 g/dL (32.0-36.0); Platelet Count (auto) 487 10^3/uL (140-450); Red Blood Cells 4.66 10^6/uL (4.5-5.90); Red Cell Distribution Width 13.5 % (11.8-14.3)
[2018-07-22 09:22] LABS: Basophils # (auto) 0.1 uL; Basophils % (auto) 0.8 % (0.0-2.0); Eosinophils % (auto) 2.3 % (0.0-7.0); Lymphocytes # (auto) 1.2 uL; Lymphocytes % (auto) 14.4 % (10.0-50.0); Monocytes # (auto) 0.9 uL; Monocytes % (auto) 10.6 % (0.0-12.0); Neutrophils # (auto) 6.1 uL; Neutrophils % (auto) 71.9 % (37.0-80.0)
[2018-07-22 09:23] LABS: White Blood Cell 8.5 10^3/uL (4.4-10.8)
[2018-07-22 09:39] LABS: Calcium 8.5 mg/dL (8.5-10.1); Potassium 3.8 mmol/L (3.5-5.1)
[2018-07-22] MEDS: LEVOFLOXACIN 750MG 150 ML IV SCH (09:44)
[2018-07-22] MEDS: PANTOPRAZOLE 40 MG TAB PO SCH (09:44)
[2018-07-22] MEDS: SODIUM CHLOR 0.9% PF (SALINE LOCK) 10ML VIAL/SYR IV SCH ×2 (09:50→22:01)
[2018-07-22] MEDS ORDERED: HYDROcodone-ACET 5/325MG TAB PO PRN (12:00)
[2018-07-22 14:00] VITALS: BP 108/69
[2018-07-22 17:00] VITALS: BP 93/65
[2018-07-22] MEDS: TAMSULOSIN HYDROCHLORIDE 0.4 MG CAP PO SCH (17:23)
[2018-07-22 22:00] VITALS: BP 101/69
[2018-07-22] MEDS: LEVETIRACETAM 500 MG TAB PO SCH (22:00)
[2018-07-23 05:02] VITALS: BP 119/71
[2018-07-23 06:14] LABS: Basophils # (auto) 0.1 uL; Eosinophils # (auto) 0.3 uL; Lymphocytes # (auto) 1.8 uL; Mean Corpuscular Volume 87.8 fL (80.0-100.0); Neutrophils % (auto) 59.1 % (37.0-80.0)
[2018-07-23 06:18] LABS: Basophils % (auto) 1.1 % (0.0-2.0); Eosinophils % (auto) 3.8 % (0.0-7.0); Hematocrit 40.3 % (41.0-53.0); Hemoglobin 13.8 g/dL (13.5-17.5); Lymphocytes % (auto) 25.5 % (10.0-50.0); Mean Corpuscular Hgb Conc. 34.2 g/dL (32.0-36.0); Monocytes # (auto) 0.7 uL; Monocytes % (auto) 10.5 % (0.0-12.0); Neutrophils # (auto) 4.1 uL; Platelet Count (auto) 509 10^3/uL (140-450); Red Blood Cells 4.59 10^6/uL (4.5-5.90); Red Cell Distribution Width 13.1 % (11.8-14.3); White Blood Cell 6.9 10^3/uL (4.4-10.8)
[2018-07-23 06:38] LABS: Calcium 8.8 mg/dL (8.5-10.1); Potassium 3.9 mmol/L (3.5-5.1)
[2018-07-23 06:41] LABS: BUN/Creatinine Ratio 7.4
[2018-07-23] MEDS: SUCRALFATE 1 GM TAB PO SCH ×2 (06:44→11:21)
[2018-07-23 08:00] VITALS: BP 107/70
[2018-07-23 09:00] VITALS: BP 107/70
[2018-07-23] MEDS: SODIUM CHLOR 0.9% PF (SALINE LOCK) 10ML VIAL/SYR IV SCH (09:28)
[2018-07-23] MEDS: PANTOPRAZOLE 40 MG TAB PO SCH (09:28)
[2018-07-23] MEDS: LEVETIRACETAM 500 MG TAB PO SCH (09:29)
[2018-07-23] MEDS ORDERED: LEVOFLOXACIN 500 MG TAB PO SCH (10:00)
[2018-07-23 10:47] VITALS: BP 107/70
[2018-07-23 13:00] VITALS: BP 135/65
[2018-07-23 13:16] VITALS: BP 107/70
== END 2018-07-23 14:50 | disposition home or self-care (01) | DRG 720 ==
LOC: ER 14:36 → EAST 14:37 → ICU WEST 07-05 00:51 → EAST 07-14 16:13 → TELE-EAST 07-14 16:52 → EAST 07-16 06:49 → TELE-EAST 07-22 19:04
PROVIDERS: ADMIT Nurse Practitioner Family; ATTEND Internal Medicine
PROC: 5A1955Z Respiratory Ventilation, Greater than 96 Consecutive Hours (ICD-10-PCS; principal; 2018-07-05)
PROC: 0BH17EZ Insertion of Endotracheal Airway into Trachea, Via Natural or Artificial Opening (ICD-10-PCS; 2018-07-05)
PROC: 02HV33Z Insertion of Infusion Device into Superior Vena Cava, Percutaneous Approach (ICD-10-PCS; 2018-07-08)
PROC: 0W993ZZ Drainage of Right Pleural Cavity, Percutaneous Approach (ICD-10-PCS; 2018-07-08)
PROC: 0W993ZZ Drainage of Right Pleural Cavity, Percutaneous Approach (ICD-10-PCS; 2018-07-17)
PROC: 0W9930Z Drainage of Right Pleural Cavity with Drainage Device, Percutaneous Approach (ICD-10-PCS; 2018-07-17)
DX: A41.01 Sepsis due to Methicillin susceptible Staphylococcus aureus (principal); J96.00 Acute respiratory failure, unspecified whether with hypoxia or hypercapnia; N17.0 Acute kidney failure with tubular necrosis; J69.0 Pneumonitis due to inhalation of food and vomit; G93.41 Metabolic encephalopathy; J90 Pleural effusion, not elsewhere classified; G40.401 Other generalized epilepsy and epileptic syndromes, not intractable, with status epilepticus; Z90.49 Acquired absence of other specified parts of digestive tract; F17.200 Nicotine dependence, unspecified, uncomplicated; J98.11 Atelectasis; A41.51 Sepsis due to Escherichia coli [E. coli]; Z87.11 Personal history of peptic ulcer disease; Z82.49 Family history of ischemic heart disease and other diseases of the circulatory system
CPT/HCPCS: 10022; 32555; 36415; 36569; 36600; 70450; 70491; 70551; 71045; 71046; 71260; 72125; 76942; 77012; 80048; 80053; 80061; 80307; 81001; 82805; 82962; 83605; 83735; 84100; 84484; 85025; 85610; 86360; 86703; 87040; 87070; 87077; 87081; 87186; 87205; 93005; 93306; 94002; 94003; 94640; 95819; 97110; 97116; 97163; 97530; A4223; A6257; C1729; C9113; J0131; J0330; J0696; J1956; J2001; J2250; J2405; J2543; J2704; J3480; J3490; J7060

== ENCOUNTER 2020-05-20 00:10 | Inpatient (IN) | payer MEDICAID ==
[~2020-05-20] VITALS: Ht 185.4 cm; Wt 129.9 kg
[~2020-05-20 00:10] MED LIST: LEVE250T18 PO
[2020-05-20 01:11] LABS: Basophils # (auto) 0.1 10 ^3/uL (0-0.2); Basophils % (auto) 0.5 % (0.0-2.0); Eosinophils # (auto) 0 10 ^3/uL (0-0.8); Eosinophils % (auto) 0.3 % (0.0-7.0); Hemoglobin 14.8 g/dL (13.5-17.5); Lymphocytes # (auto) 0.9 10 ^3/uL (0.4-5.4); Lymphocytes % (auto) 6.4 % (10.0-50.0); Mean Corpuscular Hgb Conc. 33.8 g/dL (32.0-36.0); Monocytes # (auto) 0.5 10 ^3/uL (0-1.3); Monocytes % (auto) 3.6 % (0.0-12.0); Neutrophils # (auto) 13.2 10 ^3/uL (1.6-8.6); Neutrophils % (auto) 89.2 % (37.0-80.0); Nucleated Red Blood Cells % 0.1 %; Platelet Count (auto) 355 10^3/uL (140-450); Red Blood Cells 5.11 10^6/uL (4.5-5.90); Red Cell Distribution Width 14.5 % (11.8-14.3); White Blood Cell 14.8 10^3/uL (4.4-10.8)
[2020-05-20 01:32] LABS: Alanine Aminotransferase 344 U/L (16-61); Amylase 31 U/L (25-115); Anion Gap 4 (5-15); Calcium 8.5 mg/dL (8.5-10.1); Carbon Dioxide 28 mmol/L (21-32); Chloride 103 mmol/L (98-107); Glucose 182 mg/dL (74-106); Lipase 79 U/L (73-393); Magnesium 2.7 mg/dL (1.6-2.6); Potassium 4.6 mmol/L (3.5-5.1); Sodium 135 mmol/L (136-145)
[2020-05-20 01:36] LABS: Alkaline Phosphatase 90 U/L (45-117); BUN/Creatinine Ratio 19.3; Bilirubin, Total 1.5 mg/dL (0.2-1.0); Blood Urea Nitrogen 17 mg/dL (7-18); GFR African American 123 mL/min; GFR Non-African American 101 mL/min; Total Protein 8.2 g/dL (6.4-8.2)
[2020-05-20 01:44] LABS: Aspartate Aminotransferase 1066 U/L (15-37)
[2020-05-20] MEDS ORDERED: ONDANSETRON HCL 4 MG/2 ML VIAL IV ONE (04:00)
[2020-05-20] MEDS ORDERED: OXcarbazepine 300 MG TAB PO ONE (04:00)
[2020-05-20] MEDS ORDERED: levETIRAcetam 500 MG/5ML INJ IV ONE (05:49)
[2020-05-20] MEDS ORDERED: SODIUM CHLORIDE 0.9% 1,000 ML IV SCH (06:01)
[2020-05-20] MEDS ORDERED: HYDROcodone-ACET 5/325MG TAB PO PRN (06:15)
[2020-05-20] MEDS ORDERED: ACETAMINOPHEN 325 MG TAB PO PRN (06:15)
[2020-05-20] MEDS ORDERED: DOCUSATE SOD 100 MG CAP PO PRN (06:15)
[2020-05-20] MEDS ORDERED: LORazepam 0.5 MG TAB PO PRN (06:15)
[2020-05-20] MEDS ORDERED: DEXTROSE (50%) 50ML SYRG IV PRN (06:15)
[2020-05-20] MEDS ORDERED: MORPHINE SULF INJ 2 MG/ML SYRINGE 1ML IV ONE (06:30)
[2020-05-20] MEDS: metroNIDAZOLE 500MG/100ML 100 ML IV SCH ×4 (08:12→23:11)
[2020-05-20] MEDS: SODIUM CHLORIDE 0.9% 1,000 ML IV SCH ×2 (08:12→19:35)
[2020-05-20 09:46] LABS: Basophils # (auto) 0 10 ^3/uL (0-0.2); Basophils % (auto) 0.3 % (0.0-2.0); Eosinophils # (auto) 0 10 ^3/uL (0-0.8); Hematocrit 42.4 % (41.0-53.0); Lymphocytes # (auto) 0.8 10 ^3/uL (0.4-5.4); Lymphocytes % (auto) 4.8 % (10.0-50.0); Mean Corpuscular Hemoglobin 28.5 pg (28.0-32.0); Mean Corpuscular Volume 86.5 fL (80.0-100.0); Monocytes # (auto) 0.4 10 ^3/uL (0-1.3); Monocytes % (auto) 2.4 % (0.0-12.0); Neutrophils # (auto) 15.4 10 ^3/uL (1.6-8.6); Neutrophils % (auto) 92.5 % (37.0-80.0); Platelet Count (auto) 352 10^3/uL (140-450); Red Cell Distribution Width 14.8 % (11.8-14.3); White Blood Cell 16.6 10^3/uL (4.4-10.8)
[2020-05-20 09:53] LABS: Calcium 8.4 mg/dL (8.5-10.1)
[2020-05-20 10:00] LABS: BUN/Creatinine Ratio 22.5
[2020-05-20] MEDS: levETIRAcetam 500 MG TAB PO SCH ×2 (10:06→23:10)
[2020-05-20] MEDS ORDERED: SODIUM CHLORIDE 0.9% 2,000 ML IV ONE (10:30)
[2020-05-20 10:57] LABS: Albumin 3.9 g/dL (3.4-5.0); Bilirubin, Direct 0.3 mg/dL (0-0.2)
[2020-05-20 11:00] LABS: Bilirubin, Total 1.1 mg/dL (0.2-1.0); Total Protein 7.9 g/dL (6.4-8.2)
[2020-05-20] MEDS: ACCU-CHEK COMFORT CURVE STRIP VI SCH ×3 (12:44→23:33)
[2020-05-20] MEDS: InsuLIN REG 1unit/0.01ml Soln (100units/ml) SC SCH ×3 (12:45→23:32)
--- NOTE | 2020-05-20 13:27 | NUR ---
Patient arrived from ER, when I said "Сергей, my names danielle i'll be your nurse", patient did not acknowledge me, patient avoids eye contact, when asked admit questions he answers admit questions angrily, patient states " I'm calling my and going home, I'm not going to stay here". I let the patient know that he has the freedom to leave, but it would be against medical advice, since he was admitted for further work up of ABD pain. patient verbalized understanding, and said he would call when he is ready to leave AMA.
--- NOTE | 2020-05-20 14:07 | NUR ---
Patient declined to have password, stated that he will tell people what they need to know
[2020-05-20 15:09] VITALS: BP 118/66
--- NOTE | 2020-05-20 15:49 | NUR ---
patient stated he's staying for now until his covid results come back.
[2020-05-20 16:46] VITALS: BP 99/54
--- NOTE | 2020-05-20 17:45 | NUR ---
charge nurse notified covid neg.
--- NOTE | 2020-05-20 17:55 | NUR ---
Called [facility] to inform of negative covid and positive strep A. Left message on service voicemail.
--- NOTE | 2020-05-20 18:12 | NUR ---
report given to maryjane CAICEDO.
--- NOTE | 2020-05-20 18:23 | NUR ---
patient transferred to [facility].
--- NOTE | 2020-05-20 18:37 | NUR ---
Medical surgical patient transferred from [address] to Room 249[address]. Patient is awake, alert and oriented to person, place, time, and situation. Oriented to room. No complaint at this time. Requesting extra juices. Will continue to monitor Q1H and PRN.
--- NOTE | 2020-05-20 19:45 | NUR ---
OPENING SHIFT NOTE PT IS RESTING IN BED WITH EYES CLOSED AND RESP RATE IS EVEN AND UNLABORED. NO S/S OF ANY DISTRESS NOTED AT THIS TIME. WILL CONTINUE TO MONITOR Q1HR. BE DIS LOW, WHEELS ARE LOCKED, AND CALL LIGHT IS WITH IN REACH.
[2020-05-20 22:00] VITALS: BP 114/59
[2020-05-20] MEDS: PANTOPRAZOLE 40 MG TAB PO SCH (23:10)
--- NOTE | 2020-05-20 23:25 | NUR ---
PT REFUSING HIS ACCU CHECK AT THIS TIME.
[2020-05-21 05:00] VITALS: BP 119/66
[2020-05-21] MEDS: InsuLIN REG 1unit/0.01ml Soln (100units/ml) SC SCH (06:00)
[2020-05-21] MEDS: ACCU-CHEK COMFORT CURVE STRIP VI SCH ×3 (06:00→18:36)
[2020-05-21] MEDS: metroNIDAZOLE 500MG/100ML 100 ML IV SCH (06:18)
[2020-05-21 07:13] LABS: Potassium 3.6 mmol/L (3.5-5.1)
[2020-05-21 07:20] LABS: INR 1.02 (0.9-1.15)
[2020-05-21 08:00] LABS: Albumin 3.1 g/dL (3.4-5.0); BUN/Creatinine Ratio 17.6; Bilirubin, Total 0.7 mg/dL (0.2-1.0); Calcium 7.9 mg/dL (8.5-10.1); Total Protein 6.4 g/dL (6.4-8.2)
[2020-05-21 09:00] VITALS: BP 112/68
[2020-05-21] MEDS: levETIRAcetam 500 MG TAB PO SCH ×2 (09:18→22:22)
[2020-05-21] MEDS: PANTOPRAZOLE 40 MG TAB PO SCH ×2 (09:18→22:22)
[2020-05-21] MEDS: SODIUM CHLORIDE 0.9% 1,000 ML IV SCH ×3 (09:20→22:34)
[2020-05-21] MEDS ORDERED: SODIUM CHLORIDE 0.9% 2,000 ML IV ONE (10:15)
[2020-05-21] MEDS ORDERED: SODIUM CHLORIDE 0.9% 1,000 ML IV SCH (10:15)
[2020-05-21 10:28] LABS: Basophils # (auto) 0.2 10 ^3/uL (0-0.2); Basophils % (auto) 1.3 % (0.0-2.0); Eosinophils # (auto) 0.1 10 ^3/uL (0-0.8); Eosinophils % (auto) 1.2 % (0.0-7.0); Hemoglobin 13.5 g/dL (13.5-17.5); Lymphocytes % (auto) 16.4 % (10.0-50.0); Mean Corpuscular Hemoglobin 29.2 pg (28.0-32.0); Mean Corpuscular Hgb Conc. 33.7 g/dL (32.0-36.0); Mean Corpuscular Volume 86.7 fL (80.0-100.0); Neutrophils # (auto) 8.8 10 ^3/uL (1.6-8.6); Neutrophils % (auto) 73.1 % (37.0-80.0); Nucleated Red Blood Cells % 0.3 %; Platelet Count (auto) 319 10^3/uL (140-450); Red Blood Cells 4.61 10^6/uL (4.5-5.90); Red Cell Distribution Width 15.1 % (11.8-14.3); White Blood Cell 12.1 10^3/uL (4.4-10.8)
[2020-05-21] MEDS: ONDANSETRON HCL 4 MG/2 ML VIAL IV PRN (11:18)
--- NOTE | 2020-05-21 11:18 | NUR ---
Nausea Patient complained of nausea. Medicated with Zofran, will reassess.
[2020-05-21] MEDS: MORPHINE SULF INJ 2 MG/ML SYRINGE 1ML IV PRN ×2 (11:40→20:32)
--- NOTE | 2020-05-21 11:48 | NUR ---
Nausea Patient stated that nausea is resolved, however he is having pain. Morphine already given less than 30 minutes ago. Will reassess.
--- NOTE | 2020-05-21 12:15 | NUR ---
Vomiting and pain Patient is vomiting at this time, Zofran already given. Will notify
[2020-05-21 13:00] VITALS: BP 136/85
[2020-05-21] MEDS ORDERED: PROMETHAZINE HCL 25 MG/ML 1ML IV PRN (13:45)
[2020-05-21] MEDS: PROMETHAZINE HCL 25 MG/ML 1ML IV PRN ×2 (14:05→20:32)
[2020-05-21] MEDS: PENICILLIN V POTASSIUM 250 MG TAB PO SCH ×2 (14:09→22:22)
[2020-05-21 17:00] VITALS: BP 143/84
[2020-05-21] MEDS: SUCRALFATE 1 GM/10 ML ORAL SUSP PO SCH ×2 (17:31→22:22)
[2020-05-21 18:35] LABS: Hematocrit 42.3 % (41.0-53.0); Hemoglobin 13.9 g/dL (13.5-17.5); Mean Corpuscular Hemoglobin 28.6 pg (28.0-32.0); Mean Corpuscular Hgb Conc. 32.8 g/dL (32.0-36.0); Platelet Count (auto) 297 10^3/uL (140-450); Red Blood Cells 4.86 10^6/uL (4.5-5.90); Red Cell Distribution Width 14.9 % (11.8-14.3); White Blood Cell 13.2 10^3/uL (4.4-10.8)
[2020-05-21 18:37] LABS: Band Neutrophils % (manual) 0; Basophils % (manual) 0 (0.0-2.0); Blast Cells 0; Eosinophils % (manual) 0 (0-7); Metamyelocytes % 0; Myelocytes % 0; Promyelocytes % 0; Reactive Lymphocytes 0
[2020-05-21 19:25] LABS: Urine Bacteria NONE SEEN /hpf (None Seen); Urine Blood Negative /uL (Negative); Urine Mucus FEW (None Seen); Urine Specific Gravity 1.029 (1.001-1.035); Urine WBC 3 /hpf (0 - 3)
[2020-05-21 21:04] LABS: Lymphocytes % (manual) 7 (10.0-50.0); Monocytes % (manual) 2 (0-12)
[2020-05-22] MEDS: ACCU-CHEK COMFORT CURVE STRIP VI SCH ×5 (00:07→23:37)
[2020-05-22] MEDS: ONDANSETRON HCL 4 MG/2 ML VIAL IV PRN ×2 (00:46→06:05)
[2020-05-22] MEDS ORDERED: SODIUM CHLORIDE 0.9% 1,000 ML IV ONE ×2 (01:00→17:30)
[2020-05-22 02:12] VITALS: BP 120/61
[2020-05-22 06:00] VITALS: BP 154/87
[2020-05-22] MEDS: SUCRALFATE 1 GM/10 ML ORAL SUSP PO SCH ×4 (06:05→21:04)
[2020-05-22] MEDS: MORPHINE SULF INJ 2 MG/ML SYRINGE 1ML IV PRN (06:06)
[2020-05-22] MEDS: SODIUM CHLORIDE 0.9% 1,000 ML IV SCH ×3 (06:06→20:56)
[2020-05-22 06:58] LABS: Basophils # (auto) 0.1 10 ^3/uL (0-0.2); Basophils % (auto) 0.4 % (0.0-2.0); Eosinophils # (auto) 0 10 ^3/uL (0-0.8); Eosinophils % (auto) 0.1 % (0.0-7.0); Hematocrit 39.8 % (41.0-53.0); Hemoglobin 13.4 g/dL (13.5-17.5); Lymphocytes # (auto) 1.4 10 ^3/uL (0.4-5.4); Lymphocytes % (auto) 8.3 % (10.0-50.0); Mean Corpuscular Hemoglobin 29.1 pg (28.0-32.0); Mean Corpuscular Hgb Conc. 33.7 g/dL (32.0-36.0); Mean Corpuscular Volume 86.3 fL (80.0-100.0); Monocytes # (auto) 1.1 10 ^3/uL (0-1.3); Monocytes % (auto) 6.9 % (0.0-12.0); Neutrophils # (auto) 13.8 10 ^3/uL (1.6-8.6); Neutrophils % (auto) 84.3 % (37.0-80.0); Nucleated Red Blood Cells % 0.1 %; Platelet Count (auto) 290 10^3/uL (140-450); Red Blood Cells 4.61 10^6/uL (4.5-5.90); Red Cell Distribution Width 14.4 % (11.8-14.3); White Blood Cell 16.4 10^3/uL (4.4-10.8)
[2020-05-22 07:13] LABS: Magnesium 2.6 mg/dL (1.6-2.6); Potassium 3.6 mmol/L (3.5-5.1)
[2020-05-22 07:39] LABS: Albumin 3.3 g/dL (3.4-5.0); BUN/Creatinine Ratio 16.7; Bilirubin, Direct 0.2 mg/dL (0-0.2); Bilirubin, Total 0.6 mg/dL (0.2-1.0); Total Protein 6.8 g/dL (6.4-8.2)
[2020-05-22 09:00] VITALS: BP 150/88
[2020-05-22] MEDS: PANTOPRAZOLE 40 MG TAB PO SCH ×2 (11:04→21:07)
[2020-05-22] MEDS: levETIRAcetam 500 MG TAB PO SCH ×2 (11:05→21:04)
[2020-05-22] MEDS: PENICILLIN V POTASSIUM 250 MG TAB PO SCH ×2 (11:05→21:07)
[2020-05-22] MEDS ORDERED: SODIUM CHLORIDE LOCK 10 ML ONE (12:33)
[2020-05-22] MEDS ORDERED: diphenhdrAMINE HCL 50 MG/1 ML VL ONE (12:33)
[2020-05-22] MEDS ORDERED: LIDOCAINE VISCOUS 2% 15ML UD ONE (12:33)
[2020-05-22 13:00] VITALS: BP 123/58
--- NOTE | 2020-05-22 13:30 | NUR ---
Off Unit Patient taken to pre-op for procedure.
[2020-05-22 13:57] LABS: Hepatitis A Ab IgM Negative; Hepatitis B Core IgM Negative; Hepatitis B Surface Antigen Negative (Negative); Hepatitis C Antibody Negative (Negative)
--- NOTE | 2020-05-22 14:32 | NUR ---
Nutrition Assessment Notes Please refer to link for full assessment notes. Est Energy needs: 1388-3279 kcals (14-18 kcal/kgBW) Est Protein needs: 104-130 gms/day (0.8-1.0 gm/kgBW) Will continue to monitor and reassess prn. Addendum: 05/22/20 at [address] Amended: Links added.
[2020-05-22] MEDS: fentaNYL CITRATE 100 MCG/2 ML VL ONE ×2 (15:54→15:57)
[2020-05-22] MEDS: MIDAZOLAM HCL 5 MG/ML-1ML VIAL ONE ×2 (15:54→15:57)
--- NOTE | 2020-05-22 16:40 | NUR ---
On Unit Patient returned to unit after having EDG done. Patient is awake, alert and oriented. Call light given and patient encouraged to call for assistance.
[2020-05-22 17:00] VITALS: BP 119/66
[2020-05-22 22:00] VITALS: BP 125/77
[2020-05-23 05:00] VITALS: BP 118/83
[2020-05-23] MEDS: ACCU-CHEK COMFORT CURVE STRIP VI SCH ×3 (06:00→11:09)
[2020-05-23] MEDS: SODIUM CHLORIDE 0.9% 1,000 ML IV SCH ×2 (06:17→12:20)
[2020-05-23] MEDS: SUCRALFATE 1 GM/10 ML ORAL SUSP PO SCH ×2 (06:17→11:05)
[2020-05-23 07:23] LABS: Hematocrit 40.4 % (41.0-53.0); Hemoglobin 13.5 g/dL (13.5-17.5); Mean Corpuscular Hemoglobin 29.1 pg (28.0-32.0); Mean Corpuscular Hgb Conc. 33.4 g/dL (32.0-36.0); Mean Corpuscular Volume 86.9 fL (80.0-100.0); Platelet Count (auto) 284 10^3/uL (140-450); Red Blood Cells 4.65 10^6/uL (4.5-5.90); Red Cell Distribution Width 14.3 % (11.8-14.3); White Blood Cell 10.4 10^3/uL (4.4-10.8)
[2020-05-23 07:33] LABS: Basophils % (manual) 0 (0.0-2.0)
[2020-05-23 07:34] LABS: Blast Cells 0; Myelocytes % 0; Promyelocytes % 0; Reactive Lymphocytes 0
[2020-05-23 07:57] LABS: CRP High Sensitivity 0.27 mg/dL (< 0.3)
[2020-05-23 08:22] LABS: Band Neutrophils % (manual) 1; Eosinophils % (manual) 1 (0-7); Lymphocytes % (manual) 19 (10.0-50.0); Metamyelocytes % 1; Monocytes % (manual) 10 (0-12)
--- NOTE | 2020-05-23 08:24 | NUR ---
Assessment Patient is a 39-year-old male who is alert and oriented. Prior to admission patient lived with family and functioned independently. Patient informed me he does not have any medical equipment now. Per patient he will return home to his prior living arrangements post discharge and family will transport patient home. Advised patient there is a social service consult for home health safety evaluation. Informed patient clinical information will be faxed to contracted agencies. Informed patient he has the right to participate in all discharge planning. Patient verbalized understanding and agreed to discharge plan. Faxed clinical information to [facility] and [facility] . Per Whit with [facility] patient has been accepted and service to start within 24-48hrs upon d/c day. Addendum: 05/23/20 at 0826 by CONSTANCE REYNOLDS Amended: Links added.
[2020-05-23 09:24] VITALS: BP 139/96
[2020-05-23] MEDS ORDERED: PEN250T PO (09:47)
[2020-05-23] MEDS ORDERED: SUCR1SUS10 PO (09:47)
[2020-05-23] MEDS ORDERED: PANT40T PO (09:47)
[2020-05-23] MEDS: PANTOPRAZOLE 40 MG TAB PO SCH (11:05)
[2020-05-23] MEDS: levETIRAcetam 500 MG TAB PO SCH (11:05)
[2020-05-23] MEDS: PENICILLIN V POTASSIUM 250 MG TAB PO SCH (11:06)
[2020-05-23 12:23] VITALS: BP 155/86
--- NOTE | 2020-05-23 13:35 | NUR ---
Discharge instructions given as ordered. Encourage to follow up with PMD (PLEASE FOLLOW UP WITH PRIMARY CARE PROVIDER IN 3-5 DAYS. PLEASE FOLLOW UP WITH GI DOCTOR, DR. MARCANO, TO FOLLOW UP WITH GASTRIC BIOPSY.) as instructed. All questions and concerns addressed. Patient verbalized understanding. Medication reconciliation form completed and copy given to patient. Home medications held in Pharmacy returned to patient, and needed vaccines given. IV removed with catheter intact, pressure dressing applied. Patient taken to vehicle via wheelchair with all personal belongings, accompanied by staff and family member. No distress noted at time of departure.
== END 2020-05-23 13:35 | disposition home health service (06) | DRG 249 ==
LOC: ER 00:10 → OVERFLOW 00:11 → EAST 13:57
PROVIDERS: ADMIT Hospitalist; ATTEND Hospitalist
PROC: 0DB68ZX Excision of Stomach, Via Natural or Artificial Opening Endoscopic, Diagnostic (ICD-10-PCS; principal; 2020-05-22 15:53)
DX: K52.9 Noninfective gastroenteritis and colitis, unspecified (principal); M62.82 Rhabdomyolysis; B17.9 Acute viral hepatitis, unspecified; G40.909 Epilepsy, unspecified, not intractable, without status epilepticus; B95.0 Streptococcus, group A, as the cause of diseases classified elsewhere; E86.0 Dehydration; R73.9 Hyperglycemia, unspecified; E66.9 Obesity, unspecified; K21.9 Gastro-esophageal reflux disease without esophagitis; Z03.818 Encounter for observation for suspected exposure to other biological agents ruled out; Z90.49 Acquired absence of other specified parts of digestive tract; Z87.11 Personal history of peptic ulcer disease; Z68.37 Body mass index [BMI] 37.0-37.9, adult; K70.30 Alcoholic cirrhosis of liver without ascites; K29.70 Gastritis, unspecified, without bleeding
CPT/HCPCS: 36415; 43239; 71045; 74176; 76705; 80048; 80053; 80061; 80074; 80076; 81001; 82150; 82550; 82962; 83036; 83690; 83735; 84484; 85007; 85025; 85027; 85610; 86141; 86850; 86900; 86901; 87040; 87086; 87804; 87880; 96361; 96365; 96375; G0378; J2250; J2405; J3490; J7060

== ENCOUNTER 2020-12-21 15:46 | Emergency (ER) | payer MEDICAID ==
[~2020-12-21] VITALS: Ht 185.4 cm; Wt 120.2 kg
[~2020-12-21 15:46] MED LIST changes: +PANT40T PO; +PEN250T PO; +SUCR1SUS10 PO
[2020-12-21 15:48] VITALS: BP 146/102
== END 2020-12-21 18:38 | disposition left against medical advice (07) ==
LOC: ER 15:46
DX: N49.2 Inflammatory disorders of scrotum (principal); Z53.21 Procedure and treatment not carried out due to patient leaving prior to being seen by health care provider

== ENCOUNTER 2020-12-30 18:00 | Inpatient (IN) | payer MEDICAID ==
[~2020-12-30] VITALS: Ht 185.4 cm; Wt 131.0 kg
[2020-12-30 18:20] LABS: Hematocrit 46.1 % (41.0-53.0); Hemoglobin 15.3 g/dL (13.5-17.5); Mean Corpuscular Hemoglobin 29.9 pg (28.0-32.0); Mean Corpuscular Hgb Conc. 33.3 g/dL (32.0-36.0); Mean Corpuscular Volume 89.9 fL (80.0-100.0); Platelet Count (auto) 346 10^3/uL (140-450); Red Blood Cells 5.12 10^6/uL (4.5-5.90); Red Cell Distribution Width 14.5 % (11.8-14.3); White Blood Cell 28.6 10^3/uL (4.4-10.8)
[2020-12-30 18:32] LABS: Basophils % (manual) 0 (0.0-2.0); Blast Cells 0; Eosinophils % (manual) 0 (0-7); Metamyelocytes % 0; Myelocytes % 0; Promyelocytes % 0; Reactive Lymphocytes 0
[2020-12-30 18:55] LABS: Alanine Aminotransferase 78 U/L (16-61); Albumin 4.1 g/dL (3.4-5.0); Anion Gap 11 (5-15); Aspartate Aminotransferase 54 U/L (15-37); BUN/Creatinine Ratio 14.7; Blood Urea Nitrogen 15 mg/dL (7-18); Calcium 9.1 mg/dL (8.5-10.1); Carbon Dioxide 24 mmol/L (21-32); Chloride 103 mmol/L (98-107); GFR African American 103 mL/min; GFR Non-African American 85 mL/min; Glucose 107 mg/dL (74-106); Magnesium 2.1 mg/dL (1.6-2.6); Potassium 4.4 mmol/L (3.5-5.1); Sodium 138 mmol/L (136-145)
[2020-12-30 19:00] LABS: Alkaline Phosphatase 73 U/L (45-117); Bilirubin, Total 0.9 mg/dL (0.2-1.0)
[2020-12-30 19:03] LABS: Amylase 44 U/L (25-115); Lipase 98 U/L (73-393)
[2020-12-30 19:37] LABS: Band Neutrophils % (manual) 4; Lymphocytes % (manual) 5 (10.0-50.0); Monocytes % (manual) 4 (0-12)
[2020-12-30] MEDS ORDERED: ONDANSETRON HCL 4 MG/2 ML VIAL IV ONE (20:45)
[2020-12-30] MEDS ORDERED: SODIUM CHLORIDE 0.9% 1,000 ML IV ONE (20:45)
[2020-12-30] MEDS ORDERED: metroNIDAZOLE 500MG/100ML 100 ML IV ONE (21:45)
[2020-12-30] MEDS ORDERED: cefTRIAXone 1GM/50ML D5W 50 ML IV ONE (21:45)
[2020-12-30] MEDS ORDERED: MORPHINE SULFATE 4 MG/ML SYR/VIAL IV ONE (21:45)
[2020-12-30] MEDS ORDERED: SODIUM CHLORIDE 0.9% 2,000 ML IV ONE (21:45)
[2020-12-30] MEDS ORDERED: PROMETHAZINE HCL 25 MG/ML 1ML IV ONE (21:45)
[2020-12-30 22:18] LABS: Urine Bacteria NONE SEEN /hpf (None Seen); Urine Blood Negative /uL (Negative); Urine Mucus FEW (None Seen); Urine Specific Gravity 1.029 (1.001-1.035); Urine WBC 1 /hpf (0 - 3)
[2020-12-30 22:31] LABS: Amphetamine Screen, Urine NEGATIVE (NEGATIVE); Barbiturate Scree,Urine NEGATIVE (NEGATIVE); Benzodiazephine Screen, Urine NEGATIVE (NEGATIVE); Cannabinoid Screen, Urine NEGATIVE (NEGATIVE); Cocaine Screen, Urine NEGATIVE (NEGATIVE); Opiate Scree,Urine NEGATIVE (NEGATIVE); Phencyclidine Screen, Urine NEGATIVE (NEGATIVE)
[2020-12-30 22:34] LABS: Alcohol, Urine < 3.0 mg/dL (0-10)
[2020-12-30 22:54] LABS: Lactic Acid w/Reflex 2.4 mmol/L (0.4-2.0)
[2020-12-30] MEDS ORDERED: HYDROcodone-ACET 5/325MG TAB PO PRN (23:30)
[2020-12-30] MEDS ORDERED: MORPHINE SULF INJ 2 MG/ML SYRINGE 1ML IV PRN (23:30)
[2020-12-30] MEDS ORDERED: NITROGLYCERIN 0.4 MG SL TAB SL PRN (23:30)
[2020-12-30] MEDS ORDERED: ACETAMINOPHEN 325 MG TAB PO PRN (23:30)
[2020-12-31] MEDS: ONDANSETRON HCL 4 MG/2 ML VIAL IV PRN (01:09)
[2020-12-31] MEDS: MORPHINE SULFATE 4 MG/ML SYR/VIAL IV PRN (01:10)
[2020-12-31] MEDS: D5W/SOD CHL 0.45% 1,000 ML IV SCH ×2 (04:00→12:50)
[2020-12-31] MEDS: metroNIDAZOLE 500MG/100ML 100 ML IV SCH ×3 (06:00→21:25)
[2020-12-31 07:58] LABS: Basophils # (auto) 0.1 10 ^3/uL (0-0.2); Basophils % (auto) 0.6 % (0.0-2.0); Eosinophils # (auto) 0 10 ^3/uL (0-0.8); Eosinophils % (auto) 0.1 % (0.0-7.0); Hemoglobin 13.3 g/dL (13.5-17.5); Lymphocytes # (auto) 0.7 10 ^3/uL (0.4-5.4); Lymphocytes % (auto) 2.9 % (10.0-50.0); Mean Corpuscular Hemoglobin 30.5 pg (28.0-32.0); Mean Corpuscular Hgb Conc. 34.2 g/dL (32.0-36.0); Monocytes # (auto) 0.5 10 ^3/uL (0-1.3); Monocytes % (auto) 2.1 % (0.0-12.0); Neutrophils # (auto) 21.6 10 ^3/uL (1.6-8.6); Neutrophils % (auto) 94.3 % (37.0-80.0); Nucleated Red Blood Cells % 0.1 %; Platelet Count (auto) 328 10^3/uL (140-450); Red Blood Cells 4.38 10^6/uL (4.5-5.90); Red Cell Distribution Width 14.9 % (11.8-14.3); White Blood Cell 22.9 10^3/uL (4.4-10.8)
[2020-12-31 08:10] LABS: Albumin 3.4 g/dL (3.4-5.0); Calcium 8.1 mg/dL (8.5-10.1); Potassium 3.8 mmol/L (3.5-5.1)
[2020-12-31 08:16] LABS: BUN/Creatinine Ratio 14.3; Bilirubin, Total 0.7 mg/dL (0.2-1.0)
[2020-12-31] MEDS: cefTRIAXone 1GM/50ML D5W 50 ML IV SCH (09:00)
[2020-12-31] MEDS: ENOXAPARIN SOD 40 MG/0.4 ML SYRINGE SC SCH (10:00)
[2020-12-31] MEDS ORDERED: levETIRAcetam 500 MG TAB PO SCH (10:00)
[2020-12-31] MEDS: PANTOPRAZOLE 40 MG/10 ML VIAL INJ IV SCH (10:00)
[2020-12-31] MEDS ORDERED: GOLYTELY 4L KIT PO ONE (12:15)
[2020-12-31 13:32] LABS: INR 1.06 (0.9-1.15)
[2020-12-31 17:00] VITALS: BP 129/77
[2020-12-31] MEDS ORDERED: OXCA600T40 PO (19:22)
[2020-12-31 22:00] VITALS: BP 135/79
[2021-01-01] MEDS: D5W/SOD CHL 0.45% 1,000 ML IV SCH ×2 (02:10→15:30)
[2021-01-01 05:00] VITALS: BP 131/68
[2021-01-01] MEDS: MORPHINE SULFATE 4 MG/ML SYR/VIAL IV PRN (05:35)
[2021-01-01] MEDS: metroNIDAZOLE 500MG/100ML 100 ML IV SCH ×2 (05:58→14:47)
[2021-01-01] MEDS ORDERED: GOLYTELY 4L KIT PO ONE (06:00)
[2021-01-01] MEDS: ONDANSETRON HCL 4 MG/2 ML VIAL IV PRN ×2 (07:41→14:47)
[2021-01-01 08:00] VITALS: BP 144/98
[2021-01-01] MEDS ORDERED: MIDAZOLAM HCL 5 MG/ML-1ML VIAL ONE (08:19)
[2021-01-01] MEDS ORDERED: diphenhdrAMINE HCL 50 MG/1 ML VL ONE (08:19)
[2021-01-01] MEDS ORDERED: fentaNYL CITRATE 100 MCG/2 ML VL ONE (08:20)
[2021-01-01 08:51] VITALS: BP 144/98
[2021-01-01] MEDS: PANTOPRAZOLE 40 MG/10 ML VIAL INJ IV SCH (10:12)
[2021-01-01] MEDS: ENOXAPARIN SOD 40 MG/0.4 ML SYRINGE SC SCH (10:12)
[2021-01-01] MEDS: cefTRIAXone 1GM/50ML D5W 50 ML IV SCH (10:12)
[2021-01-01] MEDS ORDERED: PROMETHAZINE HCL 25 MG/ML 1ML ONE (11:05)
[2021-01-01] MEDS ORDERED: fentaNYL CITRATE 100 MCG/2 ML VL IV ONE ×2 (11:14→11:21)
[2021-01-01] MEDS ORDERED: diphenhdrAMINE HCL 50 MG/1 ML VL IV ONE (11:14)
[2021-01-01] MEDS ORDERED: MIDAZOLAM HCL 5 MG/ML-1ML VIAL IV ONE ×2 (11:14→11:21)
[2021-01-01] MEDS ORDERED: SUCR1SUS10 PO (15:13)
[2021-01-01] MEDS ORDERED: PANT40T PO (15:13)
[2021-01-01] MEDS ORDERED: CEPH250C PO (15:13)
[2021-01-01] MEDS ORDERED: METR500T PO (15:14)
[2021-01-01] MEDS ORDERED: ONDA-144 PO (15:14)
[2021-01-01 16:48] VITALS: BP 151/87
== END 2021-01-01 17:47 | disposition home or self-care (01) | DRG 720 ==
LOC: ER 18:02 → TELE 18:03 → TELE-CENTR 12-31 13:50
PROVIDERS: ADMIT Nurse Practitioner Family; ATTEND Hospitalist
PROC: 0DBM8ZX Excision of Descending Colon, Via Natural or Artificial Opening Endoscopic, Diagnostic (ICD-10-PCS; principal; 2021-01-01 11:09)
DX: A41.9 Sepsis, unspecified organism (principal); E66.01 Morbid (severe) obesity due to excess calories; K44.9 Diaphragmatic hernia without obstruction or gangrene; K29.70 Gastritis, unspecified, without bleeding; K52.9 Noninfective gastroenteritis and colitis, unspecified; K57.30 Diverticulosis of large intestine without perforation or abscess without bleeding; E78.5 Hyperlipidemia, unspecified; K21.9 Gastro-esophageal reflux disease without esophagitis; K22.70 Barrett's esophagus without dysplasia; Z87.11 Personal history of peptic ulcer disease; Z20.822 Contact with and (suspected) exposure to COVID-19
CPT/HCPCS: 36415; 45380; 74176; 80053; 80307; 81001; 82150; 83036; 83605; 83690; 83735; 84484; 85007; 85025; 85027; 85610; 87040; 87426; 96365; 96366; 96372; 96375; 96376; C9113; G0378; J0696; J2250; J2405; J3490; J7060